=== PATIENT | female | born 1955 | race Caucasian/White ===

== ENCOUNTER → 2023-03-08 07:47 | Outpatient (REF) | payer MEDICARE, SELFPAY ==
--- NOTE | 2023-03-08 08:01 | CA_ITS ---
Transthoracic Echocardiogram Patient (Last, First, Middle): Edwina Summers, Gender: Female Date of : 1955 Age: 68 Procedure Date: 03/08/2023 Procedure Type: Transthoracic Echocardiogram Location: [place] Height: 165.1 cm Weight: 90.72 kg BSA: 1.98 m2 Heart Rate: 68 bpm BP: 132 / 64 mmHg Crm Marketing Analyst: SB Referring MD: Anne Culver MD Furniture Assembler And Installer: Kendall Martinez MD Symptoms: I10 HTN Study Quality: Adequate ECG Rhythm: Sinus Conclusions: - Essentially normal study Findings Left Ventricle Normal left ventricular size, thickness, and systolic function. The visually estimated ejection fraction is between 65-70%. Spectral Doppler is indicative of a normal filling pattern. Peak GLS is -18.4%, within normal limits Right Ventricle Normal right ventricular cavity size and systolic function. Atria Both atria are normal in size. Interatrial shunt cannot be excluded. Aortic Valve Normal aortic valve structure and function. There is no aortic valve stenosis. There is no aortic valve regurgitation. Mitral Valve Normal mitral valve structure and function. There is trace mitral valve regurgitation. There is no mitral valve stenosis. Pulmonic Valve The pulmonic valve is likely normal. Tricuspid Valve Normal tricuspid valve structure. There is trace tricuspid valve regurgitation. The right ventricular systolic pressure is normal. The right ventricular systolic pressure is 32 mmHg. Normal right atrial pressure. There is no evidence of pulmonary hypertension. Great Vessels All visible segments of the aorta are normal in size. The pulmonary artery was not well visualized. Venous The inferior vena cava is normal in size and collapses greater than 50% with inspiration. Pericardium/Pleural There is no evidence of pericardial effusion. Prior Study Comparison No prior study available for comparison. Measurements 2D Linear Measurements IVSd: 1.09 0.6-0.9/0.6-1.0 cm LVIDd: 4.54 3.9-5.3/4.2-5.9 cm LVIDd Index: 2.29 2.4-3.2/2.2-3.1 cm/m2 LVIDs: 2.67 2.0-3.6 cm LVPWd: 0.92 0.7-1.1 cm LA Diam: 4.10 2.7-3.8/3.0-4.0 cm LAIDs Index: 2.07 1.5-2.3 cm/m2 LV Mass: 194.93 67-162/88-224 g LV Mass Index: 98.45 43-95/49-115 g/m2 LVOT Diam: 1.90 3.0+(-)1.3 cm 2D Systolic Function EF 4C: 69.70 >55% EF 2C: 72.30 >55% Mitral Valve MV Pk E: 0.90 MV PK A: 0.93 MV Decel Time: 225.00 E/A: 1.00 E'Lateral: 8.59 E'Medial: 8.81 E/E' Med: 10.20 E/E' Lat: 10.50 PHT: 66.00 MVA PHT: 3.33 Decel Bailey: 3.99 Aortic Valve AoV Pk Reynold: 1.49 AoV Pk Grad: 9.00 CHERI: 1.98 LVOT LVOT Pk Reynold: 1.12 LVOT Mn Reynold: 0.78 LVOT VTI: 0.28 LVOT Pk Grad: 5.00 LVOT Mn Grad: 3.00 LVOT Diam: 1.90 LVOT Area: 2.84 Diastolic Function MV Pk E: 0.90 MV Pk A: 0.93 E/A: 1.00 E'Medial: 8.81 E/E' Med: 10.20 E' Laterial: 8.59 E/E' Lat: 10.50 Right Ventricle TAPSE (mm): 28.10 TVS' Reynold: 11.70 Tricuspid Valve TR Pk Reynold: 2.67 TR Pk Grad: 29.00 RA Press: 3.00 RVSP: 32.00 Great Vessels Aorta Sinus of Valsalva: 2.80 2.0-3.5 cm Ao Asc: 3.10 2.1-3.4 cm Pulmonary Valve PV Pk Reynold: 1.06 Peak PV Grad: 4.00 Updated in Other Vendor System with Status of Final Kendall Martinez MD electronically signed on 03/08/2023 5:07:09 PM with status of Final
== END ==
LOC: HO.CARD 07:47
PROVIDERS: PCP Student in an Organized Health Care Education/Training Program; Visit Provider Student in an Organized Health Care Education/Training Program
DX: I10 Essential (primary) hypertension (principal)
CPT/HCPCS: 93306; 93356